=== PATIENT | female | born 1960 | race Caucasian/White ===

== ENCOUNTER → 2018-03-22 | Outpatient (CLI) | payer BC ==
[2018-03-22 12:30] LABS: T4, Free (Free Thyroxine) 1.19 ng/dL (0.78-2.19)
== END | disposition home or self-care (01) ==
LOC: LABWHC1 11:47
PROVIDERS: ATTEND Obstetrics & Gynecology
DX: Z13.220 Encounter for screening for lipoid disorders (principal); Z13.29 Encounter for screening for other suspected endocrine disorder
CPT/HCPCS: 36415; 80061; 84439; 84443; 84479

== ENCOUNTER → 2018-05-15 | Outpatient (CLI) | payer BC ==
--- NOTE | 2018-05-15 10:05 | XR ---
EXAMINATION TYPE: XR chest 2V DATE OF EXAM: 05/15/2018 COMPARISON: NONE HISTORY: Shortness of breath TECHNIQUE: Frontal and lateral views of the chest are obtained. FINDINGS: Scattered senescent parenchymal changes noted. Hyperinflation compatible with COPD. No evidence for infiltrate. No evidence for atelectasis. Heart size is stable. Mediastinal structures are stable and grossly unremarkable. No evidence for hilar prominence. Degenerative changes dorsal spine. IMPRESSION: 1. No evidence for acute pulmonary disease.
== END | disposition home or self-care (01) ==
LOC: RADXRMAIN 09:19
PROVIDERS: ATTEND Family Medicine
DX: F17.210 Nicotine dependence, cigarettes, uncomplicated (principal)
CPT/HCPCS: 71046

== ENCOUNTER → 2019-09-16 | Outpatient (CLI) | payer BC ==
--- NOTE | 2019-09-17 10:31 | MM ---
Reason for exam: clinical finding. Last mammogram was performed 1 year and 5 months ago. History: Patient is postmenopausal. Family history of breast cancer in paternal aunt at age 60. Benign right breast aspiration of the right breast, July 04, 2013. Excisional biopsy of the left breast, July 10, 2008. Cancelled Left Mammotome of the left breast, July 08, 2008. Physical Findings: Nurse did not find any significant physical abnormalities on exam. MG 3D Diag Mammo W/Cad ADEEL Bilateral CC and MLO view(s) were taken. Prior study comparison: April 23, 2018, bilateral MG screening mammo w CAD. December 13, 2015, bilateral MG screening mammo w CAD. The breast tissue is heterogeneously dense. This may lower the sensitivity of mammography. There are benign appearing stable round oval circumscribed right lower inner quadrant masses. Benign appearing bilateral calcifications, similar to prior exams. Right biopsy marker noted. These results were verbally communicated with the patient and result sheet given to the patient on 09/16/19. ASSESSMENT: Incomplete: need additional imaging evaluation, BI-RAD 0 RECOMMENDATION: Ultrasound of both breasts. (pain)
--- NOTE | 2019-09-17 10:36 | USB ---
Reason for exam: additional evaluation requested from abnormal screening. History: Patient is postmenopausal. Family history of breast cancer in paternal aunt at age 60. Benign right breast aspiration of the right breast, July 04, 2013. Excisional biopsy of the left breast, July 10, 2008. Cancelled Left Mammotome of the left breast, July 08, 2008. US Breast Limited BILAT Right limited breast ultrasound including focal area of concern, retroareolar and axilla demonstrates a 0.8 x 1.0 x 0.4cm oval, mixed, hypoechoic lesion at 8 o'clock, likely complicated cyst, 6 month follow up recommended, a 0.3 x 0.3 x 0.3cm ova, complex, cystic lesion at 9 o'clock, likely complicated cyst, suggestion of posterior enhancement, 6 month follow up recommended, duct ectasia at 9 o'clock and at posterior nipple. Left limited breast ultrasound including focal area of concern, retroareolar and axilla demonstrates a 0.4 x 0.2 x 0.3cm oval, cystic, lesion at 4 o'clock posterior nipple and a 0.3 x 0.3 x 0.2cm cystic lesion and duct ectasia at the posterior nipple, cyst at the end of duct. These results were verbally communicated with the patient and result sheet given to the patient on 09/16/19. ASSESSMENT: Probably benign, BI-RAD 3 RECOMMENDATION: Ultrasound of the right breast in 6 months. (at 9 o'clock and 8 o'clock)
== END | disposition home or self-care (01) ==
LOC: RADMAMWWP 15:17
PROVIDERS: ATTEND Obstetrics & Gynecology
DX: N64.4 Mastodynia (principal); R92.8 Other abnormal and inconclusive findings on diagnostic imaging of breast
CPT/HCPCS: 77062; 77066

== ENCOUNTER → 2020-06-01 | Outpatient (CLI) | payer BC | END | disposition home or self-care (01) | LOC: LABWHC1 12:33 | PROVIDERS: ATTEND Family Medicine | DX: Z20.828 Contact with and (suspected) exposure to other viral communicable diseases (principal) | CPT/HCPCS: U0003; C9803 ==

== ENCOUNTER → 2022-04-21 | Outpatient (CLI) | payer BC ==
--- NOTE | 2022-04-21 14:50 | XR ---
EXAMINATION TYPE: XR knee complete bilateral DATE OF EXAM: 04/21/2022 CLINICAL HISTORY: Joint instability. Knees give out. TECHNIQUE: Three views of the bilateral knees are obtained. COMPARISON: None. FINDINGS: There is no acute fracture/dislocation evident in either knee. Symmetric small spurs anter ior superior patella at this level quadriceps tendon attachment. Tricompartment joint space is fairly well-maintained bilaterally. Small asymmetric right-sided suprapatellar joint effusion is noted. IMPRESSION: As above.
== END | disposition home or self-care (01) ==
LOC: RADXRMAIN 14:14
PROVIDERS: ATTEND Family Medicine
DX: M19.90 Unspecified osteoarthritis, unspecified site (principal)

== ENCOUNTER 2023-01-19 14:10 | Emergency (ER) | payer BC ==
[2023-01-19] MEDS ORDERED: KETOROLAC 15 MG/ML 1 ML VIAL IM STA (14:52)
--- NOTE | 2023-01-19 14:59 | ED ---
General Adult HPI - General Chief complaint: Back Pain/Injury Stated complaint: SEV BACK PAIN Time Seen by Provider: 01/19/23 14:29 Source: patient, RN notes reviewed Mode of arrival: wheelchair Limitations: no limitations - History of Present Illness Initial comments: 62-year-old female with no significant past medical history presents to the emergency department with a chief complaint of low back pain. Patient reports that she had low back pain that worsened over the last week. She was seen at her primary care physician on 01/16/2023 gauge. Pain. She's been taking Tylenol and Motrin week with mild symptomatically relief. She reports she woke up this morning with worsening pain. She is able tingling. She denies any injury or trauma. She denies any fevers, saddle paresthesia, loss of bowel or bladder function. - Related Data Previous Rx's Medication Instructions Recorded Lidocaine 5% Patch [Lidoderm 5% 1 patch TOPICAL DAILY #10 patch 01/19/23 Patch] Allergies Allergy/AdvReac Type Severity Reaction Status Date / Time No Known Allergies Allergy Verified 01/19/23 14:26 Review of Systems ROS Statement: Those systems with pertinent positive or pertinent negative responses have been documented in the HPI. ROS Other: All systems not noted in ROS Statement are negative. Past Medical History Past Medical History: No Reported History History of Any Multi-Drug Resistant Organisms: None Reported Past Surgical History: Hysterectomy Past Psychological History: No Psychological Hx Reported Smoking Status: Current every day smoker Past Alcohol Use History: None Reported Past Drug Use History: None Reported General Exam - General Exam Comments Initial Comments: General: Alert, in no acute distress Head: atraumatic normocephalic. Eyes PERRL, EOMI intact, mucous membranes moist Respiratory: Lungs clear to auscultation bilaterally Cardiovascular: Rate regular rate and Abdominal: Soft without guarding or rebound Extremities: Normal inspection with full range of motion and normal capillary refill Neuroogic: alert and oriented 3, CN II-XII intact, able to ambulate with steady gait Skin: warm dry and intact with normal color Limitations: no limitations Course Vital Signs 01/19/23 01/19/23 14:22 16:47 Temperature 98.0 F 98 F Pulse Rate 80 65 Respiratory 20 18 Rate Blood Pressure 120/75 120/79 O2 Sat by Pulse 99 96 Oximetry Medical Decision Making - Medical Decision Making Was pt. sent in by a medical professional or institution ([facility], [facility], urgent care, hospital, or jail...) When possible be specific @ -[No] Did you speak to anyone other than the patient for history (EMS, parent, family, police, friend...)? What history was obtained from this source @ -[No] Did you review nursing and triage notes (agree or disagree)? Why? @ -[I reviewed and agree with nursing and triage notes] Were old charts reviewed (outside hosp., previous admission, EMS record, old EKG, old radiological studies, urgent care reports/EKG's, jail records)? Report findings @ -[No old charts were reviewed] Differential Diagnosis (chest pain, altered mental status, abdominal pain women, abdominal pain men, vaginal bleeding, weakness, fever, dyspnea, syncope, headach e, dizziness, GI bleed, back pain, seizure, CVA, palpatations, mental health, musculoskeletal)? @ -[not applicable] EKG interpreted by me (3pts min.). @ -[As above] X-rays interpreted by me (1pt min.). @ lumbar x-ray negative for any evidence of fracture or dislocation however there is mild degenerative changes to L2-L3. CT interpreted by me (1pt min.). @ -[None done] U/S interpreted by me (1pt. min.). @ -[None done] What testing was considered but not performed or refused? (CT, X-rays, U/S, labs)? Why? @ -[None] What meds were considered but not given or refused? Why? @ -[None] Did you discuss the management of the patient with other professionals (professionals i.e. [facility], [facility], lab, RT, psych nurse, social service technician, filteration operator, teacher, hydrographical technical officer, registered nurse hh case manager)? Give summary @ -[No] Was smoking cessation discussed for >3mins.? @ -[No] Was critical care preformed (if so, how long)? @ -[No] Were there social determinants of health that impacted care today? How? (Homelessness, low income, unemployed, alcoholism, drug addiction, transportation, low edu. Level, literacy, decrease access to med. care, intermediate, rehab)? @ -[No] Was there de-escalation of care discussed even if they declined (Discuss DNR or withdrawal of care, Hospice)? DNR status @ -[No] What co-morbidities impacted this encounter? (DM, HTN, Smoking, COPD, CAD, Ca ncer, CVA, ARF, Chemo, Hep., AIDS, mental health diagnosis, sleep apnea, morbid obesity)? @ -[None] Was patient admitted / discharged? Hospital course, mention meds given and route, prescriptions, significant lab abnormalities, going to OR and other pertinent info. @ -Discharged. This is a 62-year-old female who presents the [facility] with back pain. Patient had a thorough history and physical exam performed in the ED. Physical exam essentially unremarkable. Heart rate regular rate and rhythm, lungs are to auscultation bilaterally, abdomen soft nontender. Back without step-off. Patient able to an bleed with a steady gait. No focal neuro deficits noted upon exam. He should had lab work and imaging performed which were essentially unremarkable. She was given Toradol and Lidoderm patch with mild symptomatic relief. She was given Tylenol starter pack. Return precautions were discussed at length. Patient discharged in stable condition. Case discussed with Dr. Keith Kathrin who agrees with plan of care. Undiagnosed new problem with uncertain prognosis? @ -[No] Drug Therapy requiring intensive monitoring for toxicity (Heparin, Nitro, Insulin, Cardizem)? @ -[No] Were any procedures done? @ -[No] Diagnosis/symptom? @ -Low back pain Acute, or Chronic, or Acute on Chronic? @ -Acute Uncomplicated (without systemic symptoms) or Complicated (systemic symptoms)? @ -uncomplicated Side effects of treatment? @ -[No] Exacerbation, Progression, or Severe Exacerbation? @ -[No] Poses a threat to life or bodily function? How? (Chest pain, USA, VT, pneumonia, PE, COPD, DKA, ARF, appy, cholecystitis, CVA, Diverticulitis, Homicidal, Suicidal, threat to staff... and all critical care pts) @ low likelihood Disposition Clinical Impression: Mechanical back pain Disposition: TRANSFER TO PSYCH HOSP/UNIT Condition: Stable Instructions (If sedation given, give patient instructions): Acute Low Back Pain (ED) Additional Instructions: Please return to the nearest emergency department if symptoms worsen or persist Prescriptions: Lidocaine 5% Patch [Lidoderm 5% Patch] 1 patch TOPICAL DAILY #10 patch Is patient prescribed a controlled substance at d/c from ED?: No Referrals: Bubba Silveira DO [Primary Care Provider] - 1-2 days Judith Cook DO [Doctor of Osteopathic Medicine] - 1-2 days Time of Disposition: 16:00
[2023-01-19] MEDS ORDERED: LIDOCAINE 5% PATCH TOPICAL SCH (15:00)
--- NOTE | 2023-01-19 15:45 | XR ---
EXAMINATION TYPE: XR lumbar spine 2 or 3V DATE OF EXAM: 01/19/2023 CLINICAL HISTORY: pain TECHNIQUE: Three views of the lumbar spine are submitted. COMPARISON: None. FINDINGS: There are 5 lumbar type vertebral bodies identified. The lumbar spine shows satisfactory alignment w ithout evidence of acute fracture or dislocation. Vertebral body heights are within normal limits. L2-3 moderate degenerative narrowing. The overlying soft tissue appears unremarkable. IMPRESSION: No acute fracture or dislocation is seen in the lumbar spine. ICD 10 NO FRACTURE, INITIAL EVALUATION
[2023-01-19] MEDS ORDERED: ACET/COD 300 MG/30 MG STARTER PACK 6 TAB BTL PO STA ×2 (16:00→16:41)
[2023-01-19 16:49] VITALS: BP 120/79; PULSE 65; RESP 18; TEMP 98
== END 2023-01-19 16:49 ==
LOC: EC 14:10
DX: M54.50 Low back pain, unspecified (principal); F17.200 Nicotine dependence, unspecified, uncomplicated
CPT/HCPCS: 72100; 99284; 96372; J1885

== ENCOUNTER → 2023-02-02 | Outpatient (CLI) | payer BC ==
--- NOTE | 2023-02-02 08:51 | MR ---
EXAMINATION TYPE: MR lumbar spine wo con DATE OF EXAM: 02/02/2023 COMPARISON: Lumbar spine radiograph 01/26/2023, 01/19/2023 HISTORY: Pain into rt side x 1 month TECHNIQUE: Multiplanar, multisequence images of the lumbar spine were acquired without IV contrast. FINDINGS: Lumbar segments are intact. No paraspinal masses are identified. Conus medullaris has a normal appe arance. Mild levoscoliotic curvature with apex at L2-L3. Multiple sacral Tarlov cysts. Multilevel dis c desiccation. Rudimentary S1-S2 disc. L1-L2: No herniation, protrusion or disc bulging. No canal stenosis is present. Foramina are patent bilaterally. L2-L3: Broad-based disc bulge with minimal effacement of anterior thecal sac. Mild bilateral facet ar thropathy. Mild right neural foraminal stenosis. The left neural foramen is patent. L3-L4: Eccentric left disc bulge with annular fissure. No significant central canal stenosis. Mild bi lateral facet arthropathy. Mild left neural foraminal stenosis. The right neural foramen is patent. L4-L5: Minimal broad-based disc bulge without significant central canal stenosis. Mild bilateral face t arthropathy. Foramina are patent bilaterally. L5-S1: Normal disc appearance without desiccation. No herniation, protrusion or disc bulging. No ca nal stenosis is present. Mild bilateral facet arthropathy. Foramina are patent bilaterally. IMPRESSION: 1. No disc herniation. 2. Mild multilevel degenerative disc disease as described above.
== END | disposition home or self-care (01) ==
LOC: RADMRIMAIN 06:38
PROVIDERS: ATTEND Orthopaedic Surgery
DX: M51.16 Intervertebral disc disorders with radiculopathy, lumbar region (principal); M47.26 Other spondylosis with radiculopathy, lumbar region
CPT/HCPCS: 72148

== ENCOUNTER → 2023-02-28 | Outpatient (CLI) | payer BC, OTHER ==
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
== END | disposition home or self-care (01) ==
LOC: RADCTMAIN 15:29
PROVIDERS: ATTEND Orthopaedic Surgery
DX: M51.16 Intervertebral disc disorders with radiculopathy, lumbar region (principal); M48.061 Spinal stenosis, lumbar region without neurogenic claudication; M47.26 Other spondylosis with radiculopathy, lumbar region
CPT/HCPCS: 72131

== ENCOUNTER → 2023-04-11 | Outpatient (CLI) | payer BC ==
[2023-04-11 13:21] VITALS: BP 141/102; PULSE 91; RESP 16; TEMP 98.7
--- NOTE | 2023-04-11 15:17 | P.PAINPG ---
PQRS Measure Charge Sheet Comment: HISTORY OF PRESENT ILLNESS: 62 yr old female as a referral from Dr Guardado presents today w severe and chronic LBP x 1 yr secondary to DDD, spondylosis and facet arthropathy without myelopathy for evaluation. Pt states pain level is provoked at 10 /10 in intensity, constant, localized in the lower lumbar spine, stabbing in character w shooting pain towards the BL sides. Pain is provoked by bending. Pain is alleviated by PT x 4 wks in Jan 2023, physician guided exercises daily since Jan 2023, medications (Celebrex), topical, repositioning and rest . Oswestry axial pain score at 28 . PMH: OA PSH: Hysterectomy, Lumbar Fusion SH: Daily tobacco use, No ETOH use, No illicit drug use FH: Non contributory All: See list Meds: See list REVIEW OF ORGAN SYSTEMS: CONSTITUTIONAL: No fevers or chills. No recent weight loss. NEUROLOGICAL: + numbness and tingling along the distal extremities. No seizure disorders or headaches. MUSCULOSKELETAL: + pain PSYCHIATRIC: Denies current depression or suicidal thoughts. Physical Examinations : Constitutional : Cooperative , not in acute distress . Neurologic : Cranial nerve II to XII intact. No focal neurological deficits. Psychiatric : alert & oriented x 3. Matching mood & appropriate affect. Judgment & insight intact. Musculoskeletal : Cervical Spine Motor strength in the deltoid and biceps: Normal right side. Normal Left side Motor strength biceps and the wrist extensors: Normal right side . Normal left side Motor strength in the triceps muscle: Normal right side. Normal left side Deep tendon reflexes: Normal at the biceps. Normal at Brachioradialis. Normal at triceps Vertebral body tenderness to deep palpation over Cervical facet loading test: positive bilaterally Spurling test: positive bilaterally Neck distraction test: positive bilaterally Julius sign: positive bilaterally Lumbar spine Motor strength lower extremities ,thigh and legs 5/5 Right side , 5/5 Left side Deep tendon reflexes : Normal Knee Jerk. Normal Ankle Jerk Vertebral body tenderness over L4 Agudelo Test positive Lumbar facet Loading Test: positive Right / positive Left Range of motion of the lumbar spine Flexion 30 degrees, extension 10 degrees Straight Leg Raise test: Left/ Right positive at degree Rishabh test: positive right / positive left. Severe tenderness over the Sacroiliac joint on the Right / Left sides Gaenslen test: positive bilaterally Seated flexion test: positive bilaterally. Sacral spine : Severe tenderness over the Sacroiliac joint: right side / left side Range of motion: Flexion of the lumbar spine <60 degrees Range of motion: Extension of the lumbar spine <20 degrees Gaenslen's Test positive Suhas's Test positive Rishabh test: positive right side / left side Thigh Thrust Test Sacral Thrust Test Imaging: CT noncontrast of the lumbar spine from 02/28/23 reviewed Assessment/ Plan : Lumbar DDD Recommendation of ZO L2-L3 #1 though pt has a tentative surgery date which may coincide with continued care. May need a series of injections for optimal pain relief. Risks, benefits of procedure discussed and patient verbalized understanding. Admits to aspirin or anti- coagulant use or medical history of diabetes. Protocol for discontinuation/ continuation of medications andrey procedure discussed. Minimal anesthesia provided, if clinically indicated, consisting of Versed and Fentanyl. All questions answered. I have spent greater than 30 minutes on patient care today. Dr Carr was available by phone for the evaluation of this patient. The time was used to review the medical records including relevant urine studies and Prescription history (MAPs), review of the available imaging, evaluation and examination of the patient, coordination of care with the medical staff and if applicable referring physicians, as well as creation of the medical record - Pain Location Bilateral Lower Back Non-Pharmacological Interventions: Exercise, Heat, Home Exercise, Ice, Inactivity, Physical Therapy, Stretching Pharmacological Interventions: PRN Medication, Topical Medication Home Medications: Ambulatory Orders Lidocaine 5% Patch [Lidoderm 5% Patch] 1 patch TOPICAL DAILY #10 patch 01/19/23 Celecoxib [CeleBREX] 200 mg PO BID 04/11/23 Cyclobenzaprine [Flexeril] 10 mg PO HS 04/11/23 Controlled Substance Measures - Controlled Substance Measures Is patient prescribed a controlled substance at discharge?: No
== END ==
LOC: PNWHC3 12:27
PROVIDERS: ATTEND Specialist
DX: M47.817 Spondylosis without myelopathy or radiculopathy, lumbosacral region (principal); M19.90 Unspecified osteoarthritis, unspecified site; F17.200 Nicotine dependence, unspecified, uncomplicated; M51.36 Other intervertebral disc degeneration, lumbar region
CPT/HCPCS: 99211

== ENCOUNTER → 2023-05-01 | Outpatient (CLI) | payer OTHER | END | disposition home or self-care (01) | LOC: LABPAT 14:22 | PROVIDERS: ATTEND Orthopaedic Surgery | DX: Z01.812 Encounter for preprocedural laboratory examination (principal); M47.816 Spondylosis without myelopathy or radiculopathy, lumbar region | CPT/HCPCS: 87070 ==

== ENCOUNTER 2023-05-04 11:35 | Day surgery (SDC) | payer BC, OTHER ==
[2023-05-02 11:35] VITALS: BMI 24.9
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
[~2023-05-04 11:35] MED LIST: ACETAMINOPHEN TAB 500 MG TAB PO PRN; DEXAMETHASONE SOD PHOSPHATE 4 MG/ML 1 ML VIAL IV ONE; GABAPENTIN 300 MG CAP PO PRN; HYDROmorphone 0.5 MG/0.5 ML SYRINGE IVP PRN; ONDANSETRON 4 MG/2 ML VIAL IVP ONE; ONDANSETRON 4 MG/2 ML VIAL IVP PRN; TRANEXAMIC 1,000 MG/100ML-NACL 1,000 MG in SALINE 1 100ML.BAG IVPB PRN
[2023-05-04] MEDS ORDERED: ONDANSETRON 4 MG/2 ML VIAL IVP ONE (11:47)
[2023-05-04] MEDS ORDERED: HYDROmorphone 0.5 MG/0.5 ML SYRINGE IVP PRN ×2 (11:47→17:45)
[2023-05-04] MEDS ORDERED: DEXAMETHASONE SOD PHOSPHATE 4 MG/ML 1 ML VIAL IV ONE (11:47)
[2023-05-04] MEDS ORDERED: LIDOCAINE 1% (10MG/ML) FOR IV START INTRADERMA PRN (11:47)
[2023-05-04] MEDS ORDERED: LACTATED RINGERS 1,000 ML IV SCH (11:47)
[2023-05-04] MEDS ORDERED: MIDAZOLAM 2 MG/2 ML VIAL IV PRN (11:47)
[2023-05-04] MEDS: LACTATED RINGERS 1,000 ML IV SCH ×2 (12:23→19:31)
[2023-05-04] MEDS ORDERED: MIDAZOLAM 2 MG/2 ML VIAL IVP ONE (12:26)
[2023-05-04] MEDS ORDERED: fentaNYL (PF) 50 MCG/ML 2 ML AMP ONE (14:25)
[2023-05-04] MEDS ORDERED: LIDOCAINE 2% INJ 20 MG/ML (2 ML VIAL) ONE (14:25)
[2023-05-04] MEDS ORDERED: KETAMINE 10 MG/ML 20 ML VIAL ONE (14:25)
[2023-05-04] MEDS ORDERED: SUCCINYLCHOLINE CHLORIDE 200 MG/10 ML VIAL IV ONE (14:25)
[2023-05-04] MEDS ORDERED: PHENYLEPHRINE-0.9% NACL SYG 1,000 MCG/10 ML SYRINGE ONE (14:25)
[2023-05-04] MEDS ORDERED: TRANEXAMIC 1,000 MG/100ML-NACL PREMIX BAG ONE (14:25)
[2023-05-04] MEDS ORDERED: DEXAMETHASONE SOD PHOSPHATE 10 MG/ML 1 ML VIAL ONE (14:25)
[2023-05-04] MEDS ORDERED: diphenhydrAMINE 50 MG/ML 1 ML VIAL ONE (14:25)
[2023-05-04] MEDS ORDERED: MIDAZOLAM 2 MG/2 ML VIAL ONE (14:25)
[2023-05-04] MEDS ORDERED: PROPOFOL 10 MG/ML 20 ML VIAL IV ONE (14:25)
[2023-05-04] MEDS ORDERED: GELATIN SPONGE,ABSORBABLE 1 GM POWDER TOPICAL ONE (15:30)
[2023-05-04] MEDS ORDERED: THROMBIN (BOVINE) 5,000 UNIT VIAL TOPICAL ONE (15:31)
[2023-05-04] MEDS ORDERED: BUPIVACAINE (PF) 0.25% 30 ML VIAL SQ ONE (15:55)
[2023-05-04] MEDS ORDERED: VANCOMYCIN 1,000 MG VIAL MISCELLANE ONE (16:54)
[2023-05-04] MEDS ORDERED: HYDROcodone/APAP 5-325MG 1 EACH TAB PO PRN (17:45)
[2023-05-04] MEDS ORDERED: bisacodyL 10 MG SUPP RECTAL PRN (17:45)
[2023-05-04] MEDS ORDERED: SENNOSIDES-DOCUSATE SODIUM 1 EACH TAB PO PRN (17:45)
[2023-05-04] MEDS ORDERED: NA PHOS,M-B/NA PHOS,DI-BA 133 ML ENEMA RECTAL PRN (17:45)
[2023-05-04] MEDS ORDERED: ONDANSETRON 4 MG/2 ML VIAL IVP PRN (17:45)
[2023-05-04] MEDS ORDERED: MAGNESIUM HYDROXIDE 2,400 MG/30 ML CUP PO PRN (17:45)
[2023-05-04] MEDS ORDERED: HYDROcodone/APAP 7.5-325MG 1 EACH TAB PO PRN (17:49)
[2023-05-04] MEDS: HYDROmorphone 1 MG/ML 1 ML SYRINGE IVP PRN ×2 (19:38→22:51)
[2023-05-04] MEDS: ACETAMINOPHEN TAB 325 MG TAB PO SCH (19:57)
[2023-05-04] MEDS: HYDROcodone/APAP 10-325MG 1 EACH TAB PO PRN (20:48)
[2023-05-04] MEDS: CYCLOBENZAPRINE 10 MG TAB PO PRN (20:49)
--- NOTE | 2023-05-04 20:53 | P.PN ---
Progress Note - Text Progress Note Date: 05/04/23 Postop: . Patient seen and examined they are doing well. Their pain is under control at this time. They are moving all 4 extremities without any issues. Vital signs are stable.. They are currently recovering and will be transferred to the floor once deemed stable by the PACU team and anesthesiologist. No Other issues at this time they deny fever chills shortness of breath or chest pain. [Medical management pending] [Continue with intravenous fluids, pain medication, muscle relaxers, home medication] [Soft diet to start to advance as tolerated] We will evaluate the patient in the morning.
--- NOTE | 2023-05-04 22:02 | XR ---
EXAMINATION TYPE: XR lumbar spine 2 or 3V, FL guidance operating room DATE OF EXAM: 05/04/2023 Comparison: None Clinical History: 62-year-old female L2-3 Fusion Findings: Intraoperative fluoroscopy during L2-L3 fusion and disc replacement. FLUOROSCOPY Fluoroscopy time of 1 minute 57 seconds was used during L2-L3 fusion. 6 image/s document/s the proce erike. 1673.4 mGycm2 DAP Impression: Intraoperative fluoroscopy as above.
[2023-05-05] MEDS: ACETAMINOPHEN TAB 325 MG TAB PO SCH ×3 (00:11→11:48)
[2023-05-05] MEDS: HYDROmorphone 1 MG/ML 1 ML SYRINGE IVP PRN ×2 (01:56→08:13)
[2023-05-05] MEDS: LACTATED RINGERS 1,000 ML IV SCH (06:23)
[2023-05-05] MEDS: HYDROcodone/APAP 10-325MG 1 EACH TAB PO PRN ×2 (06:33→11:51)
[2023-05-05] MEDS: CYCLOBENZAPRINE 10 MG TAB PO PRN (06:34)
[2023-05-05 09:13] VITALS: BP 118/73; PULSE 103; RESP 18; TEMP 97.8
--- NOTE | 2023-05-05 10:07 | CT ---
EXAMINATION TYPE: CT lumbar spine wo con DATE OF EXAM: 05/05/2023 COMPARISON: 02/28/2023 HISTORY: S/P LUMBAR FUSION CT DLP: 736.[address] of the lumbar spine was performed. Bone and soft tissue window settings are submitted as well as coronal and sagittal reconstructions. L1-L2: Normal disc space height. No disc herniation protrusion or central stenosis. No facet joint arthropathy. No evidence for foraminal encroachment. L2-L3: Postoperative changes of lumbar fusion with intervertebral spacer in place. Pedicular screws a re noted with normal postoperative alignment. Postsurgical soft tissue changes are appreciated. L3-L4: Mild degenerative disc space narrowing with the broad-based posterior disc bulge which mildly effaces the ventral thecal sac. Mild left foraminal encroachment. L4-L5: Mild degenerative disc space narrowing with the broad-based posterior disc bulge which mildly effaces the ventral thecal sac. Mild bilateral foraminal encroachment. L5-S1: Mild degenerative disc space narrowing. Broad-based posterior disc bulge greatest paracentrall y and to the right where there is right lateral recess stenosis and mild right foraminal encroachment . No paraspinal masses are identified. Lumbar segments are free if fracture. IMPRESSION: 1. Appropriate postoperative alignment at L2-3 as discussed.
[2023-05-05 11:46] LABS: BUN/Creat Ratio 15.14 Ratio (12.00-20.00); Blood Urea Nitrogen 10.6 mg/dL (9.0-27.0); Calcium 8.9 mg/dL (8.7-10.3); Chloride 103 mmol/L (96-109); Glucose 161 mg/dL (70-110); Potassium 4.7 mmol/L (3.5-5.5); Sodium 137 mmol/L (135-145)
--- NOTE | 2023-05-05 11:47 | P.OP ---
Date of Procedure: 05/04/23 Preoperative Diagnosis: 1. L2-L3 spondylosis severe stenosis 2. Low back pain 3. Lower extremity radiculopathy with weakness Postoperative Diagnosis: 1. L2-L3 spondylosis severe stenosis 2. Low back pain 3. Lower extremity radiculopathy with weakness Procedure(s) Performed: stage I 1. Lateral interbody fusion L2-L3 (25682) stage II 1. L2-L3 posterior lateral stabilized fusion (75209) 2. Instrumentation L2-L3 (58290) use of IONM all screws testing >20 mA except Left L3 at 10mA Implants: -Life spine lateral expandable LLIF cage -Globus creo screws and manpreet -Magnatos -Ventris contour Anesthesia: GETA Surgeon: Ángel Guardado Expedition Supervisor #1: Michael Springer (HEDY Carmichael Was present and assisted with all aspects of the case from positioning to dressing placement) Estimated Blood Loss (ml): 75 IV fluids (ml): 1,500 Urine output (ml): 350 Pathology: none sent Condition: stable Disposition: PACU Indications for Procedure: Chloe Foote is a 62-year-old female presenting for evaluation of severe mid to low back pain with lower extremity radiculopathy. It was my pleasure to have seen and examined Chloe Foote In our visit today we have had a chance to go over subjective complaints, physical examination findings and treatments including the natural course history without intervention and various interventional options. The patients imaging demonstrates XRay Lumbar Multiview (AP, Lateral, Flexion, Extension) with AP pelvis; 5 views taken at [facility] on 01/26/23 of Lumbar, Pelvis Spine: Images reviewed with the patient L2-L3 spondylosis severe with retrolisthesis and lateral listhesis to the left. There is severe disc desiccation which is noted endplate sclerosis as well as cystic formation. Facet arthrosis is noted posteriorly. No acute fracture dislocation otherwise noted. Alignment is compromised secondary to the collapse at this level with lateral collapse as well as decreased lordosis. AP pelvis demonstrates congruent level pelvis to fracture CT [facility] * 02/28/23 of Lumbar Spine: * images reviewed demonstrate spondylosis L2-L3 severe was severe stenosis. This is foraminal as well as central. There is facet arthrosis noted. There is complete collapse of disc space. Large osteophytic change. No acute fracture or dislocation otherwise noted. MRI [facility] at [facility] from02/02/2023 of Lumbar Spine: images reviewed with the patient Severe spondylosis noted at L2-L3 with near complete disc collapse along with disc herniation due to collapse. There are Modic endplate changes. There is ligamental hypertrophy and facet hypertrophy contributing to moderate central stenosis. There is foraminal stenosis related to the disc bulging herniation and the disc collapse. No acute fractures are noted at this time. There is some lateral listhesis to the collapse. No lesions noted at this time. Lumbar lordosis is fairly well maintained except for at this level with her segmental kyphosis due to the severe spondylosis and collapse. On physical exam, Kristal demonstrates severe mid to low back pain, LE radiculopathy, LE weakness, difficulty with ADLs secondary to her pain and debility. I have explained to the patient that as their condition progresses it will cause further neurological deficits and eventual paralysis. Based on the patients imaging, physical exam, and the rapid progression and disabling nature of their symptoms, at this time I recommend surgery in the form or a: L2-3 decompression and fusion. I discussed the risk and benefits of this procedure at length with Chloe Foote. The patient agreed to considered pursuing the procedure abovementioned. Prior to surgery, she should follow up with her PCP (Cardio, ID, IM etc) for clearance. Questions were invited and answered, and the patient wishes to proceed as outlined below. Currently, I am recommendin. L2-3 decompression and fusion lateral and posterior approach Description of Procedure: L2-3 lateral interbody fusion with posterolateral instrumented fusion (MONI) The patient was seen and examined in the preoperative area. All preoperative protocols were followed. Informed consent was obtained, risks and benefits of the procedure were discussed at length. Risks including bleeding infection damage to the surrounding tissue and risk of reoperation were discussed with the patient. Risk of anesthesia up to and including was discussed with the patient. These are outlined in the risk review. They were willing to accept these risks and all of the risks of surgery. The patient was given a weight- based dose of antibiotics in the form of 2 g Ancef. The patient was seen and evaluated by the anesthesia team who deemed them fit for surgery. The site was marked, the patient was willing to proceed with the procedure. The patient was transferred to the operative suite by the Department of anesthesia. They were then drifted off to sleep by the department anesthesia and GETA was performed. The patient tolerated this well. [place] catheter was placed by nursing staff, atraumatically. Once confirmation of lines and ventilation the patient was transferred to a flat Chris table and placed in the right lateral decubitus position. Axillary roll was placed. Hip Bump was placed. All bony prominences including wrists, elbows, axilla, chest, hips, and thighs, and feet were padded very well. Special attention was paid to the genitalia and these were padded accordingly. SCDs were placed on bilateral lower extremities and were connected. Arms were well padded and placed on armboard pillows. The patient was taped to the table and secured. Once in position, again we confirmed good ventilation capabilities and that lines were running appropriately. The patient's left lateral lumbar and flank was then exposed. 1010s were placed outlining the incision site. Standard alcohol was used to clean the incision site and allowed to dry. C-arm was used to biomark the patient and confirm level for incision which was marked with a skin marker. Operative briefing was performed with all teams and everyone in agreement to proceed. The patient was then prepped and draped in a normal sterile fashion. Timeout was then performed and all parties were in agreement with the procedure to be performed. Transverse skin incision was then made over the previously biomarker area and dissection taken down with EC to the external oblique fascia. This was then identified and two large marylu clamps then used for blunt dissection through the external, internal and transverse abdominis inline with the level to be exposed. Once the transversalis fascia was identified the retroperitoneal space was entered bluntly and blunt dissection was used to sweep abdominal contents anteriorly. Retroperitoneal fat was identified and the psoas as well as TVP was palpated. Once this was identified a blunt probe was placed with the help of biplanar fluoroscopy at the L2-3 level. Once it was in good position in the posterior ? of the body and at the disc space, a wire was passed. IONM was used to stimulate the probes before at 2 and 5 mA with no responses in all 4 quadrants. Dilator was then placed over the probe and stimulated and there was no response again. Retractor blades were then chosen and retractor placed and secured in position and to the table. The blades were carefully then opened slightly and the IONM probe sent down all 4 quadrants again without any responses at 2, 5 and 10 mA. The retractor was then opened further for visualization and the dilators and wire removed. Disc space was visible and a combination of bipolar and EC were used to clean margins and identify disc. Once it was identified, rongeur was used to remove outer osteophytes. A osteotome was then used to pass through the disc space under fluoroscopic guidance once this was passed a Maier was then passed in a similar fashion through to the opposite side to release the osteophytes on this side as well. Once these were released sequential box osteotomes were passed in a similar fashion until the disc had been completely removed. Good bleeding endplates were noted. Pituitary was used to remove any floating or excess fragments. The trial was then placed and sized. The disc space was irrigated. A 55 mm x 22 mm 8-16 mm expandable lateral leg spine cage was then selected and placed under fluoroscopic guidance. The cages then expanded to its desired height, reducing a and restoring disc space height and lordosis and alignment. The cage was backfilled with MagnatOs. The slot tag inserter was then removed and the area inspected. No injury was evident, minimal bleeding was cauterized and AP and Lateral images confirmed good placement of cage. The retractor was then removed under direct visualization at 18 min in the psoas. The wound was copiously irrigated with NSS. The deep fascia was then closed with 0 Vicryl superficial closed with 2-0 Vicryl and the skin was closed with a 3-0 running strata fix Monocryl. Skin glue was then placed after it was cleaned it was then dressed sterilely with an operative foam dressing. The patient was transferred back to their hospital bed atraumatically and the beds were flipped for the second stage posteriorly. Pt was then positioned prone on a [employer] spine top table. All bony prominences including wrists, elbows, axilla, chest, hips, and thighs, and feet were padded very well. Special attention was paid to the genitalia and these were padded accordingly. SCDs were placed on bilateral lower extremities and were connected. Arms were well padded and placed on armboard pillows. The patient was taped to the table and secured. Once in position, again we confirmed good ventilation capabilities and that lines were running appropriately. The patient's left lateral lumbar and flank was then exposed. 1010s were placed outlining the incision site. Standard alcohol was used to clean the incision site and allowed to dry. C-arm was used to biomark the patient and confirm level for incision which was marked with a skin marker. Operative briefing was performed with all teams and everyone in agreement to proceed. The patient was then prepped and draped in a normal sterile fashion. Timeout was then performed and all parties were in agreement with the procedure to be performed. Skin nicks were then made over the PSIS on the Right side and pins placed for the [employer] Navigation tracker system. This was then secured. A 3D Ziehm spin was then obtained and registered. Once it was confirmed to be accurate, pedicles were targeted through bilateral skin incisions over L2 and L3. Navigated Jamshidi was used to plan screws followed by a navigated drill bit. Once drilled a wire was placed in the pedicle and they were all confirmed to be in good position on AP and Lateral imaging. Screws were then placed over the wires using lateral imaging. Once in position screws were tested and all tested above 20 mA. Rods were then selected and bent appropriately. Posterolateral gutters were decorticated with a high speed patricia and Ventris bio placed in the PL gutters for fusion. Rods were then placed through tulip heads, subfascial and secured with set screws. Set screws were then finally tightened. Tabs were broken off. AP and Lateral imaging confirmed good placement of screws with reduction of height, lordosis and alignment. Wounds were copiously irrigated with NSS. Local anesthetic is placed remote to the incision for the block. The deep fascia was closed with 0 vicryl. Superficial closed with 2-0 Vicryl and skin closed with gisela. Wound edges approximated very well. Wounds were then cleaned and dressed sterilly with optifoam dressing. The patient was then transferred to their hospital bed atraumatically. Patient was then awakened and extubated by the department of anesthesia having tolerated the procedure very well with no complications. They were transferred to the postoperative care unit in stable condition.
[2023-05-05 11:59] LABS: Basophils # (A) 0.01 X 10*3/uL (0.00-0.10); Basophils % (A) 0.1 %; Eosinophils # (A) 0 X 10*3/uL (0.04-0.35); Eosinophils % (A) 0 %; HCT 37.8 % (37.2-46.3); HGB 12.5 d/dL (12.0-15.0); Lymphocytes # (A) 1.29 X 10*3/uL (0.90-5.00); Lymphocytes % (A) 10.5 %; MCH 34.1 pg (27.0-32.0); MCHC 33.1 d/dL (32.0-37.0); Macrocytosis (M) 2+; Mean Platelet Volume 10.7 FL (9.5-12.2); Monocytes # (A) 0.48 X 10*3/uL (0.20-1.00); Monocytes % (A) 3.9 %; NRBC Per 100 WBC 0 X 10*3/uL (0.00-0.01); Neutrophils # (A) 10.43 X 10*3/uL (1.80-7.70); Platelet Count 236 X 10*3/uL (140-440); RBC 3.67 X 10*6/uL (4.10-5.20); RDW 12.4 % (11.5-14.5); WBC 12.27 X 10*3/uL (4.50-10.00)
--- NOTE | 2023-05-05 13:40 | P.PN ---
Subjective Progress Note Date: 05/05/23 Principal diagnosis: Status post L2-L3 lateral interbody fusion, posterior lateral stabilize fusion Patient was evaluated today at bedside, she is resting comfortably in her hospi nevaeh bed. She has noticed some increase in pain when up and ambulating but it is tolerable. She's been ambulating with the assistance of a walker. She is urinating with no difficulties. She is passing gas. She denies any numbness or tingling to the genital or perineal region along with lower extremities or bilateral upper extremities. denies headaches, lightheadedness, chest pain or shortness of breath Objective - Vital Signs Vital signs: Vital Signs Temp 97.8 F 05/05/23 08:43 Pulse 103 H 05/05/23 08:43 Resp 18 05/05/23 08:43 BP 118/73 05/05/23 08:43 Pulse Ox 90 L 05/05/23 08:43 FiO2 Intake & Output 05/04/23 05/05/23 05/05/23 18:59 06:59 18:59 Intake Total 1750 Output Total 300 Balance 1450 Weight 61.1 kg 61.1 kg Intake: IV 1750 Output: Urine 200 Estimated Blood Loss 100 Other: # Voids 2 4 - Exam Gen: AOx3, NAD VSS stable at this time Integument: Postoperative bandages are all in good position and condition, no active drainage is appreciated Palpation: Mild tenderness with palpation noted to the left flank and upper lumbar spine ROM: Full range of motion in all major muscle groups of the bilateral upper and lower extremities, no focal deficits Sensory Exam: Senory exam to light touch is intact C5-T1 Senosry exam to light touch is intact L2-S1 Motor: 5/5 strength appreciated in the bilateral upper extremities with shoulder elevation, shoulder abduction, wrist extension, wrist flexion, elbow extension, elbow flexion, office administration instructor 5/5 strength appreciated in the bilateral lower extremities with hip flexion, knee extension, knee flexion, plantar flexion, dorsiflexion, EHL, FHL Reflexes: 2/4 in all UE and LE Negative Julius's, Babinski, clonus bilaterally Special Test: Negative straight leg raise bilaterally - Labs CBC & Chem 7: 05/05/23 06:12 05/05/23 06:12 Labs: Abnormal Lab Results - Last 24 Hours (Table) 05/05/23 05/05/23 Range/Units 06:12 06:12 WBC 12.27 H (4.50-10.00) X 10*3/uL RBC 3.67 L (4.10-5.20) X 10*6/uL MCV 103.0 H (80.0-97.0) FL MCH 34.1 H (27.0-32.0) pg Neutrophils # 10.43 H (1.80-7.70) X 10*3/uL Eosinophils # 0 L (0.04-0.35) X 10*3/uL Macrocytosis (manual) 2+ A Carbon Dioxide 21.0 L (21.6-31.8) mmol/L Anion Gap 13.00 H (4.00-12.00) mmol/L Glucose 161 H (70-110) mg/dL Assessment and Plan Assessment: Postoperative day #1 status post L2-L3 lateral interbody fusion, posterior lateral stabilized fusion Plan: Pain control, plan for discharge home on [place] 10 mg/325 mg, Flexeril 10 mg DVT prophylaxis, patient is utilized KEN hose compression stockings during hospital stay, no medications needed for home Wound care instructions were discussed, this including when to remove bandages and showering instructions Activity level restrictions were discussed, this including no lifting, bending or twisting. Patient utilize walker for ambulation Medical recommendations appreciated Discharge planning: Patient is stable for discharge to home Time with Patient: Less than 30
--- NOTE | 2023-05-05 13:45 | P.DS ---
Providers Date of admission: 05/04/2023 Expected date of discharge: 05/05/23 Attending physician: Ángel Guardado DO Consults: 05/04/23 17:48 Consult Physician Routine Consulting Provider: Héctor Cervantes Consult Reason/Comments: Medical Management Do you want consulting provider notified?: Yes Primary care physician: Channing Home Course: Date of admission: 05/04/2023 Date of discharge: 05/05/2023 Admission diagnosis: Low back pain, lower extremity weakness and radiculopathy, L2-L3 spondylosis with stenosis Discharge diagnosis: Status post L2-L3 lateral interbody fusion, posterior lateral stabilize fusion Attending physician: Dr. Guardado Surgical procedures: L2-L3 lateral interbody fusion, posterior lateral stabilize fusion Brief history: Patient is a 62-year-old female who has followed up in the office with Dr. Guardado regarding his back pain, lower extremity weakness, lower extremity radiculopathy and severe spondylosis with stenosis at L2-L3. Conservative measures were not achievable for symptomatically relief, patient was then scheduled for an elective surgery for 05/04/2023. Hospital course: Details of patient's surgery can be found in operative report. Patient tolerated the procedure well and was subsequently transported to orthopedic floor. Patient's orthopeidc and medical care was provided daily. Patient had daily laboratory tests performed for evaluation of overall blood counts. Patient had daily physical therapy to include strengthening range of motion as well as education with walker ambulation. Patient was treated with KEN hose for their postoperative DVT prophylaxis during their inpatient stay. Patient was noted to have a relatively uneventful postoperative course. Patient reported satisfactory pain control with oral pain medications by postoperative day 0. Patient showed satisfactory progress with physical therapy. Patient moved steadily through the program and had no difficulty meeting the goals by po stoperative day 1. Given patient's otherwise satisfactory course and having met physical therapy goals, plan is to discharge patient [home] on postoperative day 1. Discharge condition/disposition: Patient will be discharged [home] in stable condition. Discharge medications: Instructions are given on resumption of patient's normal daily medications per primary care recommendation, in addition patient will be prescribed Dudley 10 mg/325 mg, Flexeril 10 mg, Duricef 500 mg, senna S. Spine Discharge and Recovery Instructions Medications: See medication list All medication refills should be obtained through your primary care doctor or your clinic spine surgeon. Please discuss prescription refills at your follow up appointment. Do not call the hospital for medication refills. Dressing: Leave your dressing in place for a total of 5 days post operatively. Then you may remove your dressing and leave open to air. Keep the area clean and if not able to keep area clean, then cover with sterile gauze and tape. Showering: You may shower 3 days after your procedure allowing soap and water to run over incision. Do not scrub. Do not soak. Blot dry. Follow up: Please confirm a follow up appointment with your surgeon 3 weeks post operatively. Please make an appointment to follow up with your PCP in 1-2 weeks after surgery for evaluation 3 phase, 3-week plan POST OP WEEKS 1-3 1. Lifting/carrying/pushing/pulling limited to less than 5 pounds. 2. Do not sit for longer than 15 minutes at one time. Get up and walk around. Prolonged sitting is NOT advised. If you lay down, see if you can tolerate laying down on you front (belly side) 3. Walk for periods of 15 minutes = 1 mile but no longer; do it multiple times times each day. 4. Ice your low back after activity. POST OP WEEKS 3-6 1. Lifting limited to less than 20 pounds. 2. Do not sit for longer than 30 minutes at a time. Frequently change positions. Use a sit-to stand workstation or take frequent breaks from sitting if you have returned to work. 3. Walk for 30 minutes each day. If possible, do these three or more times a day POST OP WEEKS 6+ At your 6-week appointment we will give you a physical therapy referral to focus on a core stabilization and strengthening program. You should also work on leg & buttock strengthening, hamstring & quadriceps stretching, and continue a low impact aerobic activity program such as swimming, walking, or riding a stationary bicycle. During the initial 6 weeks after your surgery, you are at the highest risk of re-injuring your spine. You should generally avoid BLTs (bending, lifting and twisting combination motions) and follow the above guidelines to reduce the chance of reinjury. You can anticipate post op appointments in our office at approximately 3 weeks and 6 weeks after your surgery. INCISION CARE: If your incision is not draining you do NOT need to cover it with a dressing. Keep your incision clean, dry and intact. In most cases, we apply skin glue, gisela or sutures to the incision at the time of surgery. This will be like a crust or have the appearance of a scab and will fall off in time on its own. The stitches or gisela need to be removed at 3 weeks post op appointment. You may begin to shower 3 days after surgery (this allows the glue to gomez well). However, please avoid scrubbing the incision site or peeling off any of the skin glue. This will ensure optimal healing of your incision. Also, during this time avoid soaking the incision area in water - this includes swimming pools, hot tubs or baths. No ointments, lotions or oils on the incision until your surgeon allows. Leave gisela, sutures or glue in place. Neurological dysfunction that comes on suddenly can also be a sign of a stroke. Below some common symptoms of a stroke are listed: B - balance difficulty such as sudden onset walking or leaning to one side - NEW E - eye problem such as sudden double vision or trouble seeing on one side - NEW F - Facial weakness or numbness on one side - NEW A - Arm or leg weakness or numbness on one side - NEW S - Slurred speech or difficulty with word finding - NEW T - Time is BRAIN! Call 911 as soon as you recognize these symptoms Diet: Consume a regular diet rich in vegetables and lean protein such as chicken or fish. You should consume in a ratio of approximately 20% fats|40% carbohydrates|40%protein. Vegetables, sweet potatoes, brown rice or quinoa are examples of good carbohydrates. Chips, white bread, cookies and sweets/sugar are examples of bad carbohydrates. Limit your bad carbs, go wild with good carbs. "Life's Simple 7" Guidelines as per [employer] These will help you reclaim your life after surgery and instrument repairer helper in your recovery, keeping in mind your restrictions. (1) Get Active. Physical activity can help people lose weight, control high blood pressure and cholesterol, feel emotionally better, and sleep better. (2) Control Cholesterol. Avoid a diet high in saturated fat, trans fat, & cholesterol. Limit whole milk & cream, ice cream, butter, egg yolks, processed meats (like sausage and hot dogs), and fatty meats. Choose healthy foods that are low in saturated fat, trans fat and cholesterol which include: Fruits and vegetables, fiber rich grain products (like whole grain pasta and brown rice), lean meat such as chicken, fish, nuts, seeds, and legumes. (3) Eat Better. Eat small portions. Shop at the grocery with a list and do not stray from it. Tips for a healthy diet include: Limit sodium intake to less than 1500mg daily, avoid prepackaged, processed, and fast foods, choose a diet rich in fruits, vegetables, and whole grain, high fiber foods, and limit saturated & cholesterol in your diet. (4) Manage Blood Pressure. If you have high blood pressure, you should have a cuff at home so that you can check your blood pressure regularly. Be sure you have a good cuff. An arm one is generally better than a wrist one. Bring the cuff to a doctor's appointment to validate that the measurements that your cuff are taking are accurate. Take your blood pressure twice daily when you are sitting down and relaxing. Record the numbers in a log and bring this log with you to your doctors' appointments. (5) Lose Weight if your BMI is above 25. A healthy BMI is between 19-25. To calculate Your BMI, you may use a Standard BMI Calculator on the NIH BMI website: <www.nhlbi.nih.gov/guidelines/obesity/BMI/bmicalc.htm>. Weigh oneself daily. If you are overweight, set a goal to lose weight. A pound a week loss if needed is a good target. (6) Reduce Blood Sugar. Limit foods and liquids with "added sugars." (Added sugars include sucrose, fructose, glucose, maltose, dextrose, high fructose corn syrup, corn syrup, concentrated fruit juice and honey). (7) Stop Smoking. If you smoke, quitting smoking is one of the best things that you can do for your health. Smoking increases your risk of heart attack, stroke, and peripheral vascular disease, which is a build-up of plaque in your arteries. Please discard all the cigarettes and lighters in your house. Have a plan for what you will do when you have the urge to smoke. Direct and second- hand smoke shortens your life as well as the lives of your family, friends and others around you. For your health and the health of those around you, please consider quitting! Proper Bending Body Mechanics: Maintain a wide stance with one foot slightly in front of the other. Keep your back straight. Bend utilizing the strength in your hips and knees. Do not bend at the waist. Maintain the lifted object at your waist-level close to your body. Avoid lifting weight that causes immediately pain or pain anywhere in the body afterwards. Smoking/Nicotine If there was ever one thing that you could do to increase your overall health, decrease your risk of cardiovascular problems by about 39% the second you make the choice, it is to STOP SMOKING. Your body's most instant gratification is the second you stop smoking. We have all heard the studies, read the articles but it is true, smoking is extremely bad for your overall health, and moreover it is detrimental to your bone health. Nicotine, IN ANY FORM, kills bone cells, prevents your body from healing fractures, and significantly prolongs healing after surgery. In spine surgery specifically, it increases your risk of not healing your bones to create a fusion and increases your risk of having a revision surgery due to this up to 60%. I know it is hard. I know it feels impossible. But there are ways. Take control of your life. We are here to help you through it. And when you are ready, ask us and we can direct you to help if you desire. Use the START Plan to Quit Smoking (please visit the Helpguide.org website listed below for more information): S = Set a quit date. Choose a date within the next 2 weeks, so you have enough time to prepare without losing your motivation to quit. If you mainly smoke at work, quit on the weekend, so you have a few days to adjust to the change. T = Tell family, friends, and co-workers that you plan to quit. Let your friends and family in on your plan to quit smoking and tell them you need their support and encouragement to stop. Look for a quit fadia who wants to stop smoking as well. You can help each other get through the rough times. A = Anticipate and plan for the challenges you'll face while quitting. Most people who begin smoking again do so within the first 3 months. You can help yourself make it through by preparing ahead for common challenges, such as nicotine withdrawal and cigarette cravings. R = Remove cigarettes and other tobacco products from your home, car, and work. Throw away all your cigarettes (no emergency pack!), lighters, ashtrays, and matches. Wash your clothes and freshen up anything that smells like smoke. Shampoo your car, clean your drapes and carpet, and steam your furniture. T = Talk to your doctor about getting help to quit. Your doctor can prescribe medication to help with withdrawal and suggest other alternatives. If you can't see a doctor, you can get many products over the counter at your local pharmacy or grocery store, including the nicotine patch, nicotine lozenges, and nicotine gum. Resources for Quitting Smoking: <https://www.[place].gov/documents/[facility]/Quit_Tobacco_Resources_for_patients_313 480_7.pdf> Supplementation: Take recommended dosages of Vitamin D and Calcium to help fortify your bones and help them to heal. See your health maintenance packet for dosages and recommended levels. DVT/VTE prophylaxis: You will be given compression stockings from the hospital. Wear these daily for the first two weeks after surgery. You may take them off at night. You may be prescribed a medication to help thin your blood. Take this as directed. If you are not prescribed this medication, early and frequent ambulation has been shown to be the best prophylaxis to deep vein thrombosis and sequelae related to this event. Procedures: L2-L3 lateral interbody fusion, posterior lateral stabilize fusion Patient Condition at Discharge: Good Plan - Discharge Summary Discharge Rx Participant: No New Discharge Prescriptions: New cefaDROXiL [Duricef] 500 mg PO Q12HR 5 Days #10 cap Sennosides/Docusate Sodium [Senna-S 8.6-50 mg Tablet] 2 each PO DAILY PRN #30 tablet PRN Reason: Constipation Cyclobenzaprine [Flexeril] 10 mg PO BID PRN #30 tab PRN Reason: Muscle Spasm HYDROcodone/APAP 10-325MG [Dudley 10-325] 1 tab PO Q4HR PRN 7 Days #42 tab PRN Reason: Pain No Action Cyclobenzaprine [Flexeril] 10 mg PO HS Discharge Medication List Cyclobenzaprine [Flexeril] 10 mg PO HS 04/11/23 [History] Cyclobenzaprine [Flexeril] 10 mg PO BID PRN #30 tab 05/05/23 [Rx] HYDROcodone/APAP 10-325MG [Dudley 10-325] 1 tab PO Q4HR PRN 7 Days #42 tab 05/05/23 [Rx] Sennosides/Docusate Sodium [Senna-S 8.6-50 mg Tablet] 2 each PO DAILY PRN #30 tablet 05/05/23 [Rx] cefaDROXiL [Duricef] 500 mg PO Q12HR 5 Days #10 cap 05/05/23 [Rx] Follow up Appointment(s)/Referral(s): Ángel Guardado DO [Doctor of Osteopathic Medicine] - 2 Weeks Activity/Diet/Wound Care/Special Instructions: Spine Discharge and Recovery Instructions Medications: See medication list All medication refills should be obtained through your primary care doctor or your clinic spine surgeon. Please discuss prescription refills at your follow up appointment. Do not call the hospital for medication refills. Dressing: Leave your dressing in place for a total of 5 days post operatively. Then you may remove your dressing and leave open to air. Keep the area clean and if not able to keep area clean, then cover with sterile gauze and tape. Showering: You may shower 3 days after your procedure allowing soap and water to run over incision. Do not scrub. Do not soak. Blot dry. Follow up: Please confirm a follow up appointment with your surgeon 3 weeks post operatively. Please make an appointment to follow up with your PCP in 1-2 weeks after surgery for evaluation 3 phase, 3-week plan POST OP WEEKS 1-3 1. Lifting/carrying/pushing/pulling limited to less than 5 pounds. 2. Do not sit for longer than 15 minutes at one time. Get up and walk around. Prolonged sitting is NOT advised. If you lay down, see if you can tolerate laying down on you front (belly side) 3. Walk for periods of 15 minutes = 1 mile but no longer; do it multiple times times each day. 4. Ice your low back after activity. POST OP WEEKS 3-6 1. Lifting limited to less than 20 pounds. 2. Do not sit for longer than 30 minutes at a time. Frequently change positions. Use a sit-to stand workstation or take frequent breaks from sitting if you have returned to work. 3. Walk for 30 minutes each day. If possible, do these three or more times a day POST OP WEEKS 6+ At your 6-week appointment we will give you a physical therapy referral to focus on a core stabilization and strengthening program. You should also work on leg & buttock strengthening, hamstring & quadriceps stretching, and continue a low impact aerobic activity program such as swimming, walking, or riding a stationary bicycle. During the initial 6 weeks after your surgery, you are at the highest risk of re-injuring your spine. You should generally avoid BLTs (bending, lifting and twisting combination motions) and follow the above guidelines to reduce the chance of reinjury. You can anticipate post op appointments in our office at approximately 3 weeks and 6 weeks after your surgery. INCISION CARE: If your incision is not draining you do NOT need to cover it with a dressing. Keep your incision clean, dry and intact. In most cases, we apply skin glue, gisela or sutures to the incision at the time of surgery. This will be like a crust or have the appearance of a scab and will fall off in time on its own. The stitches or gisela need to be removed at 3 weeks post op appointment. You may begin to shower 3 days after surgery (this allows the glue to gomez well). However, please avoid scrubbing the incision site or peeling off any of the skin glue. This will ensure optimal healing of your incision. Also, during this time avoid soaking the incision area in water - this includes swimming pools, hot tubs or baths. No ointments, lotions or oils on the incision until your surgeon allows. Leave gisela, sutures or glue in place. Neurological dysfunction that comes on suddenly can also be a sign of a stroke. Below some common symptoms of a stroke are listed: B - balance difficulty such as sudden onset walking or leaning to one side - NEW E - eye problem such as sudden double vision or trouble seeing on one side - NEW F - Facial weakness or numbness on one side - NEW A - Arm or leg weakness or numbness on one side - NEW S - Slurred speech or difficulty with word finding - NEW T - Time is BRAIN! Call 911 as soon as you recognize these symptoms Diet: Consume a regular diet rich in vegetables and lean protein such as chicken or fish. You should consume in a ratio of approximately 20% fats|40% carbohydrates|40%protein. Vegetables, sweet potatoes, brown rice or quinoa are examples of good carbohydrates. Chips, white bread, cookies and sweets/sugar are examples of bad carbohydrates. Limit your bad carbs, go wild with good carbs. "Life's Simple 7" Guidelines as per [employer] These will help you reclaim your life after surgery and instrument repairer helper in your recovery, keeping in mind your restrictions. (1) Get Active. Physical activity can help people lose weight, control high blood pressure and cholesterol, feel emotionally better, and sleep better. (2) Control Cholesterol. Avoid a diet high in saturated fat, trans fat, & cholesterol. Limit whole milk & cream, ice cream, butter, egg yolks, processed meats (like sausage and hot dogs), and fatty meats. Choose healthy foods that are low in saturated fat, trans fat and cholesterol which include: Fruits and vegetables, fiber rich grain products (like whole grain pasta and brown rice), lean meat such as chicken, fish, nuts, seeds, and legumes. (3) Eat Better. Eat small portions. Shop at the grocery with a list and do not stray from it. Tips for a healthy diet include: Limit sodium intake to less than 1500mg daily, avoid prepackaged, processed, and fast foods, choose a diet rich in fruits, vegetables, and whole grain, high fiber foods, and limit saturated & cholesterol in your diet. (4) Manage Blood Pressure. If you have high blood pressure, you should have a cuff at home so that you can check your blood pressure regularly. Be sure you have a good cuff. An arm one is generally better than a wrist one. Bring the cuff to a doctor's appointment to validate that the measurements that your cuff are taking are accurate. Take your blood pressure twice daily when you are sitting down and relaxing. Record the numbers in a log and bring this log with you to your doctors' appointments. (5) Lose Weight if your BMI is above 25. A healthy BMI is between 19-25. To calculate Your BMI, you may use a Standard BMI Calculator on the NIH BMI website: <www.nhlbi.nih.gov/guidelines/obesity/BMI/bmicalc.htm>. Weigh oneself daily. If you are overweight, set a goal to lose weight. A pound a week loss if needed is a good target. (6) Reduce Blood Sugar. Limit foods and liquids with "added sugars." (Added sugars include sucrose, fructose, glucose, maltose, dextrose, high fructose corn syrup, corn syrup, concentrated fruit juice and honey). (7) Stop Smoking. If you smoke, quitting smoking is one of the best things that you can do for your health. Smoking increases your risk of heart attack, stroke, and peripheral vascular disease, which is a build-up of plaque in your arteries. Please discard all the cigarettes and lighters in your house. Have a plan for what you will do when you have the urge to smoke. Direct and second- hand smoke shortens your life as well as the lives of your family, friends and others around you. For your health and the health of those around you, please consider quitting! Proper Bending Body Mechanics: Maintain a wide stance with one foot slightly in front of the other. Keep your back straight. Bend utilizing the strength in your hips and knees. Do not bend at the waist. Maintain the lifted object at your waist-level close to your body. Avoid lifting weight that causes immediately pain or pain anywhere in the body afterwards. Smoking/Nicotine If there was ever one thing that you could do to increase your overall health, decrease your risk of cardiovascular problems by about 39% the second you make the choice, it is to STOP SMOKING. Your body's most instant gratification is the second you stop smoking. We have all heard the studies, read the articles but it is true, smoking is extremely bad for your overall health, and moreover it is detrimental to your bone health. Nicotine, IN ANY FORM, kills bone cells, prevents your body from healing fractures, and significantly prolongs healing after surgery. In spine surgery specifically, it increases your risk of not healing your bones to create a fusion and increases your risk of having a revision surgery due to this up to 60%. I know it is hard. I know it feels impossible. But there are ways. Take control of your life. We are here to help you through it. And when you are ready, ask us and we can direct you to help if you desire. Use the START Plan to Quit Smoking (please visit the Helpguide.org website listed below for more information): S = Set a quit date. Choose a date within the next 2 weeks, so you have enough time to prepare without losing your motivation to quit. If you mainly smoke at work, quit on the weekend, so you have a few days to adjust to the change. T = Tell family, friends, and co-workers that you plan to quit. Let your friends and family in on your plan to quit smoking and tell them you need their support and encouragement to stop. Look for a quit fadia who wants to stop smoking as well. You can help each other get through the rough times. A = Anticipate and plan for the challenges you'll face while quitting. Most people who begin smoking again do so within the first 3 months. You can help yourself make it through by preparing ahead for common challenges, such as nicotine withdrawal and cigarette cravings. R = Remove cigarettes and other tobacco products from your home, car, and work. Throw away all your cigarettes (no emergency pack!), lighters, ashtrays, and matches. Wash your clothes and freshen up anything that smells like smoke. Shampoo your car, clean your drapes and carpet, and steam your furniture. T = Talk to your doctor about getting help to quit. Your doctor can prescribe medication to help with withdrawal and suggest other alternatives. If you can't see a doctor, you can get many products over the counter at your local pharmacy or grocery store, including the nicotine patch, nicotine lozenges, and nicotine gum. Resources for Quitting Smoking: <https://www.[place].gov/documents/[facility]/Quit_Tobacco_Resources_for_patients_313 480_7.pdf> Supplementation: Take recommended dosages of Vitamin D and Calcium to help fortify your bones and help them to heal. See your health maintenance packet for dosages and recommended levels. DVT/VTE prophylaxis: You will be given compression stockings from the hospital. Wear these daily for the first two weeks after surgery. You may take them off at night. You may be prescribed a medication to help thin your blood. Take this as directed. If you are not prescribed this medication, early and frequent ambulation has been shown to be the best prophylaxis to deep vein thrombosis and sequelae related to this event. Discharge Disposition: HOME SELF-CARE
== END 2023-05-05 15:13 | disposition home or self-care (01) ==
LOC: OR 11:35 → 4SSUR 17:38 → OR 05-05 15:13
PROVIDERS: ATTEND Orthopaedic Surgery
DX: M47.26 Other spondylosis with radiculopathy, lumbar region (principal); M48.061 Spinal stenosis, lumbar region without neurogenic claudication; K21.9 Gastro-esophageal reflux disease without esophagitis; E78.5 Hyperlipidemia, unspecified; F17.210 Nicotine dependence, cigarettes, uncomplicated; Z91.040 Latex allergy status; Z79.899 Other long term (current) drug therapy
CPT/HCPCS: 94760; 97162; 86900; 86901; 80048; 85025; 86850; 72100; 72131; 22840; 22853; 22612; J2250; J3370; J1100; J0690 ×2; J2405; J1170 ×3; J0665

== ENCOUNTER → 2024-01-02 | Outpatient (CLI) | payer BC ==
--- NOTE | 2024-01-02 15:59 | BD ---
EXAMINATION TYPE: Axial Bone Density DATE OF EXAM: 01/02/2024 CLINICAL HISTORY: 63 years old Female. ICD-10 CODE: M85.80 OSTEOPENIA Height: 5 FT 2 3/4 IN Weight: 135 FRAX RISK QUESTIONS: Alcohol (3 or more units per day): no Family History (Parent hip fracture): no Glucocorticoids (More than 3mos): no (Ex: prednisone, prednisolone, methylprednisolone, dexamethasone, and hydrocortisone). History of Fracture in Adulthood: yes Secondary Osteoporosis: 1. Type 1 Diabetes: no 2. Hyperthyroidism: no 3. Menopause before 45: no 4. Malnutrition: no 5. Chronic liver disease: no Rheumatoid Arthritis: no Current Tobacco Use: yes RISK FACTORS HISTORY OF: Surgery to Spine/Hip(right/left)/Wrist (right/left): lumbar When: 2022 MEDICATIONS: Thyroid Medications: none Osteoporosis Medications: none EXAM MEASUREMENTS: Bone mineral density about the R hip (g/cm2): 0.753 Bone mineral density about the L hip (g/cm2): 0.748 T Score values are as follows: -----R Neck: -2.0 -----L Neck: -2.1 -----R Total: -1.4 -----L Total: -1.3 Z Score values are as follows: -----R Neck: -0.5 -----L Neck: -0.6 -----R Total: -0.2 -----L Total: 0.0 Bone mineral density has: decreased -3.9 % since study of: 2018 Bone mineral density about the L Wrist (g/cm2): 0.628 T Score values are as follows: -----Dist. R+U: -1.7 -----Prox. R+U: -0.3 -----Radius total: -0.8 Z Score values are as follows: -----Dist. R+U: -0.4 -----Prox. R+U: 1.0 -----Radius total: 0.5 first time for wrist/ recent lumbar surg FRAX%s: The graph provided illustrates a 8.8 % chance for a major osteoporotic fx and a 2.1 % chance for the hips probability for fx in 10 years time. IMPRESSION: Osteopenia (T Score between -2.5 and -1). There is slightly increased risk of fracture and the patient may be considered for treatment. Re-Screen 2-5 years. NOTE: T-SCORE=SD OF THE YOUNG ADULT MEAN.
--- NOTE | 2024-01-03 18:51 | MM ---
Reason for Exam: Screening (asymptomatic). Last mammogram was performed 4 year(s) and 4 month(s) ago. Patient History: Menarche at age 12. First Full-Term at age 20. Hysterectomy at age 49. Postmenopausal. 07/10/2008, Excisional Biopsy on the Left side. 07/04/2013, Benign Cyst Aspiration on the right side. 07/08/2008, Cancelled Left Mammotome on the left side. Paternal aunt had breast cancer, age 60. Risk Values: Jordyn 5 year model risk: 1.7%. NCI Lifetime model risk: 6.9%. Prior Study Comparison: 12/13/2015 Bilateral Screening Mammogram, [facility]. 04/23/2018 Bilateral Screening Mammogram, [facility]. 09/16/2019 Bilateral Diagnostic Mammogram, [facility]. Tissue Density: The breasts are heterogeneously dense, which may obscure small masses. Findings: Analyzed By CAD. Postexcisional change redemonstrated superior left breast. Microclip right breast from prior biopsy. Chronic nodularity posterior central outer aspect of the right breast. There is no suspicious group of microcalcifications or new suspicious mass in either breast. Overall Assessment: Benign, BI-RAD 2 Management: Screening Mammogram of both breasts in 1 year. . Patient should continue monthly self-breast exams. A clinical breast exam by your physician is recommended on an annual basis. This exam should not preclude additional follow-up of suspicious palpable abnormalities. Note on Jordyn scores and lifetime risk: 1. A Jordyn score greater than 3% is considered moderate risk. If this is the case, consider specialist referral to assess eligibility for a risk reducing agent. 2. If overall lifetime risk for the development of breast cancer is 20% or higher, the patient may qualify for future screening with alternating mammogram and breast MRI. Electronically signed and approved by: Charles Stevens M.D. Radiologist
== END | disposition home or self-care (01) ==
LOC: RADBDWWP 13:01
PROVIDERS: ATTEND Family Medicine
DX: Z12.31 Encounter for screening mammogram for malignant neoplasm of breast (principal); M85.89 Other specified disorders of bone density and structure, multiple sites; Z78.0 Asymptomatic menopausal state; Z80.3 Family history of malignant neoplasm of breast
CPT/HCPCS: 77067; 77080

== ENCOUNTER → 2024-12-05 | Outpatient (CLI) | payer BC ==
--- NOTE | 2024-12-05 18:50 | US ---
EXAMINATION TYPE: US abdomen complete DATE OF EXAM: 12/05/2024 COMPARISON: NONE CLINICAL INDICATION: Female, 64 years old with history of K51.90 ULCERATIVE COLITIS, UNSPECIFIED, WIT HOUT CO; Epigastric/RUQ pain for 2 months, bloating TECHNIQUE: Grayscale and color Doppler imaging of the abdomen was performed. FINDINGS: EXAM MEASUREMENTS: Liver Length: 13.9 cm Gallbladder Wall: 0.3 cm CBD: 0.3 cm, color Doppler imaging was utilized to isolate the common bile duct for measurement. Spleen: 9.2 cm Right Kidney: 11.0 x 3.6 x 4.7 cm Left Kidney: 10.3 x 4.8 x 4.1 cm Pancreas: The majority of the pancreas is visualized and shows no gross abnormality. Liver: appears wnl Gallbladder: no evidence of stones Evidence for sonographic Post's sign: no CBD: appears wnl Spleen: appears wnl as visualized Right Kidney: no evidence of hydronephrosis Left Kidney: no evidence of hydronephrosis Upper IVC: wnl Abd Aorta: appears wnl IMPRESSION: Unremarkable sonographic examination of the abdomen. [facility], , 12/05/2024 6:47 PM
== END | disposition home or self-care (01) ==
LOC: RADUSWWP 08:53
PROVIDERS: ATTEND Family Medicine
DX: K51.90 Ulcerative colitis, unspecified, without complications (principal)
CPT/HCPCS: 76700